=== PATIENT | male | born 1960 | race Caucasian/White ===

== ENCOUNTER 2020-12-06 07:48 | Outpatient (CLI) | payer OTHER, SELFPAY ==
[2020-12-06 08:15] VITALS: BP 109/70; PULSE 72; RESP 18; TEMP 37.1; O2SAT 97; BMI 36.0
[2020-12-06 09:05] VITALS: BP 109/70; PULSE 70; RESP 18; O2SAT 92
[2020-12-06 10:00] VITALS: BP 113/77; PULSE 72; RESP 18; TEMP 36.8; O2SAT 93
== END 2020-12-06 07:49 | disposition home or self-care (01) ==
PROVIDERS: PCP Family Medicine; Visit Provider Nurse Practitioner Family
DX: U07.1 COVID-19 (principal)
CPT/HCPCS: 96365

== ENCOUNTER 2020-12-09 14:17 | Inpatient (IN) | payer OTHER, SELFPAY ==
[2020-12-09] VITALS (46 sets, daily range): BP systolic 84–159; BP diastolic 58–99; PULSE 71–92; RESP 7–123; TEMP 36.7–37.2; O2SAT 85–96; BMI 36.0
--- NOTE | 2020-12-09 15:22 | W.ED.COVID ---
HPI - COVID General: Chief Complaint: COVID symptoms Stated Complaint: COVID + COMPLICATIONS Time Seen by Provider: 12/09/20 15:21 Triage information: Has fever, cough or shortness of breath. History of Present Illness: HPI Narrative: 60-year-old male presents emergency room with complaints difficulty breathing. He tested positive for Covid previously on 917. He had had symptoms for 2 to 3 days before that. He tested positive at [facility] we do not have it on the chart and our staff is ordering it. He has myalgias diarrhea with moderately productive cough. On arrival here he is hypoxic he initially was 87% on room air when I came and seen the patient he was still hovering in the upper 80s on 3 L by nasal cannula we are able to get him to the mid to low 90s on 6 L by nasal cannula. His has also been ill and seems to be recovering evidently she did receive monoclonal antibodies. Patient denies any sharp chest pain or hemoptysis MD complaint: known COVID positive Prior covid testing: yes, results known COVID 19 common symptoms: positive cough and dyspnea; negative fever(s), chills, fatigue, body aches, throat pain, nasal congestion, nausea, vomiting or diarrhea COVID 19 other sytmptoms: positive requiring oxygen; negative chest pain Onset (ago): day(s) (6) Severity: severe Pertinent comorbid conditions: hypertension Treatment prior to arrival: none COVID Results: No Data to Display Review of Systems Const: Denies: fever(s), chills, body aches, change in appetite, fatigue or malaise ENMT: Denies: throat pain, ear or mastoid pain, nasal discharge or nasal congestion Card: Denies: chest pain, edema, dyspnea on exertion or orthopnea Resp: Reports: dyspnea GI: Denies: abdominal pain, nausea, vomiting, hematemesis, coffee ground emesis, diarrhea, constipation, bloating, hematochezia or melena : Denies: flank pain, dysuria, urinary frequency or urinary urgency Skin/Breast: Denies: rash or pruritus [facility] PFSH: Medical History GERD (gastroesophageal reflux disease) Hypertension Surgical History History of appendectomy History of cholecystectomy Social History Smoking and tobacco status: never smoked Alcohol intake: never Physical Exam Const: COMMON NORMALS: no acute distress GENERAL APPEARANCE: cooperative and comfortable ORIENTATION/CONSCIOUSNESS: Yes awake, Yes oriented to person, Yes oriented to place and Yes oriented to time HENMT: COMMON NORMALS: normocephalic, atraumatic, hearing grossly normal bilaterally, external ears normal, EAC's normal, TM's normal bilaterally, Normal nasal mucous membranes and turbinates present, moist oral mucous membranes and oropharynx normal HEAD & SCALP: normocephalic and atraumatic NOSE: Normal nasal mucous membranes and turbinates present EXTERNAL EAR: Yes external ears normal EXTERNAL AUDITORY CANAL: EAC's normal TYMPANIC MEMBRANE: TM's normal bilaterally Neck/C-Spine: COMMON NORMALS: no JVD Resp: AUSCULTATION: crackles and wheezes Cardio: COMMON NORMALS: no JVD, regular rate, regular rhythm and No murmurs present (Cardio) RATE: regular rate RHYTHM: regular rhythm GI: COMMON NORMALS: Soft to palpation and No hepatosplenomegaly present AUSCULTATION: Yes normoactive bowel sounds PALPATION: Yes Soft to palpation, No Tenderness to palpation present (GI), No Guarding due to palpation present (GI) and Yes No hepatosplenomegaly present Extremity: COMMON NORMALS: normal to inspection, capillary refill normal, no clubbing, cyanosis or edema, no calf tenderness and no pedal edema Neuro: SENSORIUM/ORIENTATION: Yes oriented to person, Yes oriented to place and Yes oriented to time Skin: COMMON NORMALS: no rashes or lesions noted GENERAL SKIN EXAM: no rashes or lesions noted Course Vital Signs: Vital signs: Vital Signs Temperature 98.2 F 12/10/20 04:00 Pulse Rate 78 12/10/20 04:45 Respiratory Rate 22 H 12/10/20 04:45 Blood Pressure 144/88 12/10/20 04:00 Pulse Oximetry 94 12/10/20 04:45 MDM - COVID MDM Narrative: Medical decision making narrative: Patient is worsening Covid with radiographic signs of infiltrates additionally he is now requiring significant amounts of oxygen. Discussed the hospitalist will admit started on dexamethasone remdesivir. Continue supportive cares as well with oxygen he may yet require heated high flow oxygen this evening given his current maxed out status on nasal Cannula. Lab Data: Labs: Lab Results 12/09/20 12/09/20 12/09/20 16:00 16:00 16:00 WBC 9.3 10^3/uL 10^3/ uL (4.0-10.0) RBC 5.31 10^6/uL H 10 ^6/uL (4.1-5.3) Hgb 16.2 g/dL g/dL (11.7-16.6) Hct 47.4 % % (42.0-52.0) MCV 89.3 fl fl (80-94) MCH 30.5 pg pg (28.0-34.0) MCHC 34.2 g/dL g/dL (30.0-36.0) RDW 12.9 % % (12.1-15.1) Plt Count 296 10^3/cmm 10^3 /cmm (130-400) MPV 10.4 fL fL (7.4-10.4) Neut % (Auto) 81.0 % % Lymph % (Auto) 9.9 % % [place] % (Auto) 6.2 % % Eos % (Auto) 0.9 % % Baso % (Auto) 0.3 % % Neut # (Auto) 7.54 10^3/uL 10^3 /uL (1.8-7.7) Lymph # (Auto) 0.9 10^3/uL 10^3/ uL (0.8-4.8) [place] # (Auto) 0.6 10^3/uL 10^3/ uL (0.2-0.9) Eos # (Auto) 0.1 10^3/uL 10^3/ uL (0.0-0.8) Baso # (Auto) 0.0 10^3/uL 10^3/ uL (0.0-0.1) Nucleated RBC % (a uto) 0 % % Nucleated RBCs # 0.0 /100WBC /100W BC D-Dimer 2.21 ug/mIFEU H u g/mIFEU (0-0.59) Specimen Type Sample Site ABG pH ABG pCO2 ABG pO2 ABG HCO3 ABG Base Excess Pedro Test Hematocrit O2 Delivery Device O2 Liters/Min Senior Executive Compensation Analyst ID Sodium 139 mmol/L mmol/L (136-145) Potassium 4.0 mmol/L mmol/L (3.5-5.1) Chloride 99 mmol/L mmol/L (98-107) Carbon Dioxide 27 mmol/L mmol/L (22-29) Anion Gap 17.0 (5-19) BUN 14 mg/dL mg/dL (8-23) Creatinine 0.8 mg/dL mg/dL (0.7-1.2) GFR Calculation 98.6 mL/min mL/mi n (90-130) Glucose 113 mg/dL mg/dL (65-115) Calculated Osmolal ity 289 mOsm/kg mOsm/ kg (285-295) Lactic Acid Calcium 8.9 mg/dL mg/dL (8.5-10.5) Total Bilirubin 1.5 mg/dL H mg/dL (0.15-1.2) AST 73 U/L H U/L (0-40) ALT 51 U/L H U/L (0-41) Alkaline Phosphata se 105 IU/L IU/L (40-130) C-Reactive Protein 83.4 mg/L H mg/L (0.0-4.9) Total Protein 6.6 g/dL g/dL (6.6-8.7) Albumin 3.5 g/dL g/dL (3.5-5.2) Globulin 3.1 g/dL g/dL (1.3-4.6) Procalcitonin 12/09/20 12/09/20 12/09/20 16:00 16:00 17:41 WBC RBC Hgb Hct MCV MCH MCHC RDW Plt Count MPV Neut % (Auto) Lymph % (Auto) [place] % (Auto) Eos % (Auto) Baso % (Auto) Neut # (Auto) Lymph # (Auto) [place] # (Auto) Eos # (Auto) Baso # (Auto) Nucleated RBC % (a uto) Nucleated RBCs # D-Dimer Specimen Type Arterial Sample Site Radial, left ABG pH 7.48 H (7.35-7.45) ABG pCO2 36.3 mmHg mmHg (35-45) ABG pO2 63.6 mmHg L mmHg (80.0-100.0) ABG HCO3 26.8 mmol/L H mmo l/L (22-26) ABG Base Excess 3.3 mmol/L H mmol /L (-2.0-2.0) Pedro Test Pos Hematocrit 47.9 % % (42-52) O2 Delivery Device Nc O2 Liters/Min 6.0 % % Senior Executive Compensation Analyst ID Cak Sodium Potassium Chloride Carbon Dioxide Anion Gap BUN Creatinine GFR Calculation Glucose Calculated Osmolal ity Lactic Acid 1.7 mmol/L mmol/L (0.5-2.2) Calcium Total Bilirubin AST ALT Alkaline Phosphata se C-Reactive Protein Total Protein Albumin Globulin Procalcitonin 0.14 ng/mL ng/mL (0-0.5) COVID Results: No Data to Display Discharge Plan Discharge Patient Disposition: Admitted As Inpatient Admit Provider: Bang Burgess Coding Level of Care Code ED Group Leader for Jose Angela
--- NOTE | 2020-12-09 15:23 | XRR_ITS ---
PROCEDURE INFORMATION: Exam: XR Chest Exam date and time: 12/09/2020 3:23 PM Age: 60 years old Clinical indication: Dyspnea; Additional info: Dyspnea/cough/fever TECHNIQUE: Imaging protocol: XR of the chest. Views: 1 view. Other technique: Frontal portable upright view of the chest. COMPARISON: No relevant prior studies available. FINDINGS: Tubes, catheters and devices: EKG leads are present overlying the chest. Lungs: Bilateral peripheral pulmonary airspace opacities, relative apical sparing. The pulmonary vasculature is normal. Pleural spaces: No pleural effusion. No pneumothorax. Heart/Mediastinum: The heart is normal in size and contour. Bones/joints: No acute abnormality identified. XR/XR chest 1V portable [id number] IMPRESSION: Bilateral peripheral pulmonary airspace opacities, relative apical sparing. Pneumonitis, including viral pneumonitis, is difficult to exclude. Clinical correlation is recommended.
[2020-12-09 16:10] LABS: Basophils % 0.3 %; Eosinophils # 0.1 10^3/uL (0.0-0.8); Eosinophils % 0.9 %; Hematocrit 47.4 % (42.0-52.0); Hemoglobin 16.2 g/dL (11.7-16.6); Lymphocytes # 0.9 10^3/uL (0.8-4.8); Lymphocytes % 9.9 %; Mean Corpuscular HGB Conc 34.2 g/dL (30.0-36.0); Mean Corpuscular Hemoglobin 30.5 pg (28.0-34.0); Mean Corpuscular Volume 89.3 fl (80-94); Mean Platelet Volume 10.4 fL (7.4-10.4); Monocytes # 0.6 10^3/uL (0.2-0.9); Monocytes % 6.2 %; Neutrophils # 7.54 10^3/uL (1.8-7.7); Nucleated Red Blood Cells % 0 %; Platelet Count 296 10^3/cmm (130-400); Red Blood Count 5.31 10^6/uL (4.1-5.3); Red Cell Distribution Width 12.9 % (12.1-15.1); White Blood Count 9.3 10^3/uL (4.0-10.0)
[2020-12-09] MEDS: dexamethasone 4 mg/mL INJ 6 MG IVP (16:15)
--- NOTE | 2020-12-09 16:23 | CTR_ITS ---
PROCEDURE INFORMATION: Exam: CTA Chest With Contrast Exam date and time: 12/09/2020 4:23 PM Age: 60 years old Clinical indication: Cough and fever and shortness of breath; Additional info: Covid/hypoxia TECHNIQUE: Imaging protocol: Computed tomographic angiography of the chest with contrast. 3D rendering (Not supervised by radiologist): MIP and/or 3D reconstructed images were created by the technologist. Radiation optimization: All CT scans at this facility use at least one of these dose optimization techniques: automated exposure control; mA and/or kV adjustment per patient size (includes targeted exams where dose is matched to clinical indication); or iterative reconstruction. Contrast material: OMNI 350; Contrast volume: 81 ml; Contrast route: INTRAVENOUS (IV); COMPARISON: CR XR chest 1V portable [id number] 12/09/2020 3:33 PM RADIATION DOSE METRICS: Total DLP (mGy-cm): 615.51 FINDINGS: Pulmonary arteries: The main and proximal pulmonary artery branches are well visualized and there is no pulmonary embolus. The more distal branches are difficult to visualize especially in the lower lobes due to respiratory motion artifact. Aorta: There is 4.4 cm aneurysmal dilatation of the ascending thoracic aorta without dissection or mural hematoma. Lungs: Multifocal moderate ground-glass and airspace opacities are noted diffusely in both lungs compatible with the history COVID-19 pneumonia. Pleural spaces: Unremarkable. No pneumothorax. No pleural effusion. Heart: Unremarkable. No cardiomegaly. No pericardial effusion. Mediastinal space: A small hiatal hernia is present. Lymph nodes: Unremarkable. No enlarged lymph nodes. Liver: There is a diffuse decrease in hepatic parenchymal density, consistent with fatty infiltration. Gallbladder and bile ducts: There has been a cholecystectomy. There is no common bile duct dilation. Bones/joints: Unremarkable. No acute fracture. Soft tissues: Unremarkable. CT/CT angio chest PE protcl [id number] IMPRESSION: 1. No pulmonary embolus in the main or proximal pulmonary artery branches. Exam is limited distally due to motion artifact. 2. Multifocal moderate ground-glass and airspace opacities are noted diffusely in both lungs compatible with the history COVID-19 pneumonia. Radiation Dose CTDIVOL = (mGy): DLP = 615.51 (mGy-cm)
[2020-12-09 16:27] LABS: D Dimer 2.21 ug/mIFEU (0-0.59)
[2020-12-09 16:31] LABS: Alanine Aminotransferase 51 U/L (0-41); Albumin Level 3.5 g/dL (3.5-5.2); Alkaline Phosphatase 105 IU/L (40-130); Aspartate Amino Transferase 73 U/L (0-40); Blood Urea Nitrogen 14 mg/dL (8-23); C Reactive Protein 83.4 mg/L (0.0-4.9); Calcium 8.9 mg/dL (8.5-10.5); Carbon Dioxide 27 mmol/L (22-29); Chloride 99 mmol/L (98-107); Globulin 3.1 g/dL (1.3-4.6); Glomerular Filtration Rate 98.6 mL/min (90-130); Glucose 113 mg/dL (65-115); Osmolality Calculated 289 mOsm/kg (285-295); Sodium 139 mmol/L (136-145); Total Bilirubin 1.5 mg/dL (0.15-1.2); Total Protein 6.6 g/dL (6.6-8.7)
[2020-12-09 16:32] LABS: Lactic Sepsis W/Reflex 1.7 mmol/L (0.5-2.2)
[2020-12-09] MEDS: remdesivir 200 MG in sodium chloride 0.9% (100 ml) 60 ML 100 MG IV (17:18)
[2020-12-09 17:53] LABS: ABG PCO2 36.3 mmHg (35-45); ABG PH Result 7.48 (7.35-7.45); Arterial Blood Gas Hematocrit 47.9 % (42-52); Base Excess ABG 3.3 mmol/L (-2.0-2.0); Blood Gas Allen Test Pos; Blood Gas Operator Identificat CAK; Blood Gas Sample Site Radial, left; Blood Gas Sample Type Arterial; HCO3 ABG 26.8 mmol/L (22-26); Oxygen Device NC; PO2 ABG 63.6 mmHg (80.0-100.0)
--- NOTE | 2020-12-09 18:33 | PM.HP ---
Providers/Chief Complaint Primary Care Provider: Maru Celaya MD Chief Complaint: COVID + COMPLICATIONS History of Present Illness Jimmy Fatima Jr is a 60 year old male who presented to the hospital with chief complaint of worsening shortness of breath. Patient is stating the last week around Wednesday he started experiencing low-grade fever, diarrhea, weakness and shortness of breath, he got tested on Wednesday and received Bam infusion along his girlfriend. Him symptoms started getting worse that is why he decided to come to the hospital for further evaluation. In the hospital he was requiring oxygen 5 to 6 L initially and was transitioned to heated high flow. CTA ruled out PE. Consistent with Covid pneumonia abnormal transaminases High D-dimer noted secondary to severe infection Patient does seem a bit depressed and stated he does not want chest compressions or intubation however with further discussion he decided to talk with his brother and family , he will stay full code, I did try to encourage him to stay full code since he is young and not give up and stay motivated to fight with COVID-19 pneumonia Review of Systems Const: Reports: fever(s), chills, body aches and fatigue Eyes: Denies: change in vision ENMT: Denies: throat pain Card: Reports: dyspnea on exertion and orthopnea; Denies: chest pain Resp: Reports: dyspnea and non-productive cough GI: Denies: abdominal pain : Denies: flank pain Musc: Reports: extremity pain Skin/Breast: Denies: rash Neuro: Denies: headache(s) Psych: Reports: depression Endo: Denies: polyuria [place]/Lymph: Denies: easy bruising All/Imm: Denies: urticaria Medications/Allergies Home Medications Medication Instructions Recorded Confirmed Last Taken Type ascorbic acid (vitamin C) 500 mg 500 mg PO DAILY 12/05/20 12/09/20 12/09/20 History tablet [id number]-[id number] 250 1 tab PO Q6H PRN 12/05/20 12/09/20 12/09/20 History mg-250 mg-65 mg tablet cholecalciferol (vitamin D3) 25 25 mcg PO DAILY 12/05/20 12/09/20 12/09/20 History mcg (1,000 unit) capsule cyanocobalamin (vitamin B-12) 500 500 mcg PO DAILY 12/05/20 12/09/20 12/09/20 History mcg tablet ibuprofen 200 mg capsule 200 mg PO Q6H PRN 12/05/20 12/09/20 12/09/20 History omeprazole magnesium [Prilosec OTC] 20 mg PO DAILY 12/09/20 12/09/20 Unknown History Allergies Allergy/AdvReac Type Severity Reaction Status Date / Time No Known Allergies Allergy Verified 12/05/20 12:29 PFSH Acute PFSH: Medical History GERD (gastroesophageal reflux disease) Hypertension Surgical History History of appendectomy History of cholecystectomy Family History Denies family history of Chronic kidney disease (CKD) Social History (Updated 12/10/20 @ 15:00 by Bang Burgess MD) Smoking and tobacco status: never smoked Alcohol intake: never Substance/Drug Use: never Household members: significant other Vitals/I&O/Wt Last Vital Signs Temp 98.9 F 12/09/20 14:37 Pulse 81 12/09/20 16:55 Resp 14 12/09/20 16:55 BP 84/58 12/09/20 16:55 Pulse Ox 90 12/09/20 16:55 Weight last 48 hrs Weight 104.326 kg Physical Exam Narrative: EXAM NARRATIVE: Patient was seen and examined Requiring nasal cannula 5 to 6 L to keep saturation above 90% No conversational dyspnea EOMI, PERRLA Awake alert and attentive GCS 15 No abdominal pain abdomen distended bowel sounds present No audible stridor or wheezing No joint swelling Lower extremities without edema Depressed mood Data : 12/10/20 04:50 12/10/20 04:50 A&P Assessment and plan (1) COVID-19 determined by clinical diagnostic criteria: Status: Acute (2) Acute respiratory failure with hypoxia: Status: Acute Additional A&P Information Acute hypoxia due to covid 19 Heated high flow 40 L, 60% try to wean off oxygen, encourage proning, out of bed to chair, Trend CRP if his oxygen requirement is worsening we will start baricitinib from tomorrow CTA ruled out PE High D-dimer secondary to severe COVID-19 pneumonia Status post monoclonal antibody infusion outpatient His girlfriend also got sick at the same time Brother and life partner Sunitha updated Continue remdesivir and Decadron along multivitamins Full code dvt lovenox changed to 30 mg twice a day secondary to BMI cardiac diet Attestations Medical Necessity Statement*: Anticipating stay in the hospital across more than 2 midnights Time Spent in Patient Care: Greater than 35 minutes Coding Level of Care Code Acute Nursing Department Chairperson for g Fwd Diagnoses COVID-19 determined by clinical diagnostic criteria U07.1 Acute respiratory failure with hypoxia J96.01
[2020-12-09] MEDS: iohexol 350 mg/mL 100 mL Btl IV (19:16)
[2020-12-09 19:21] LABS: Procalcitonin 0.14 ng/mL (0-0.5)
--- NOTE | 2020-12-09 20:06 | PC.NURSE ---
called med/surg to give report. Nancy states she will have to track the nurse down and have her call back for report.
--- NOTE | 2020-12-09 20:18 | PC.NURSE ---
report called to Radha PEREZ
[2020-12-09] MEDS: enoxaparin 40 mg/0.4 mL Syringe SUBCUT (21:08)
[2020-12-10] VITALS (10 sets, daily range): BP systolic 116–144; BP diastolic 67–88; PULSE 73–86; RESP 17–28; TEMP 36.5–36.9; O2SAT 87–95
[2020-12-10 04:16] LABS: ABG PCO2 36.8 mmHg (35-45); ABG PH Result 7.47 (7.35-7.45); Arterial Blood Gas Hematocrit 49.9 % (42-52); Base Excess ABG 2.9 mmol/L (-2.0-2.0); Blood Gas Allen Test Pos; Blood Gas Sample Site Radial, left; Blood Gas Sample Type Arterial; HCO3 ABG 26.5 mmol/L (22-26); Oxygen Device OXY MASK; PO2 ABG 56.6 mmHg (80.0-100.0)
[2020-12-10 05:33] LABS: Basophils % 0.2 %; Hematocrit 44.8 % (42.0-52.0); Hemoglobin 15.7 g/dL (11.7-16.6); Lymphocytes # 0.9 10^3/uL (0.8-4.8); Lymphocytes % 10.6 %; Mean Corpuscular Hemoglobin 30.7 pg (28.0-34.0); Mean Corpuscular Volume 87.5 fl (80-94); Mean Platelet Volume 10.5 fL (7.4-10.4); Monocytes # 0.4 10^3/uL (0.2-0.9); Monocytes % 5.2 %; Neutrophils # 6.73 10^3/uL (1.8-7.7); Neutrophils % 82.1 %; Nucleated Red Blood Cells % 0 %; Platelet Count 349 10^3/cmm (130-400); Red Blood Count 5.12 10^6/uL (4.1-5.3); Red Cell Distribution Width 12.9 % (12.1-15.1); White Blood Count 8.2 10^3/uL (4.0-10.0)
[2020-12-10 05:53] LABS: Alanine Aminotransferase 51 U/L (0-41); Albumin Level 3.3 g/dL (3.5-5.2); Alkaline Phosphatase 96 IU/L (40-130); Aspartate Amino Transferase 67 U/L (0-40); Blood Urea Nitrogen 14 mg/dL (8-23); Calcium 8.9 mg/dL (8.5-10.5); Carbon Dioxide 25 mmol/L (22-29); Chloride 98 mmol/L (98-107); Creatinine Clr Calc Pharmacy 129.1911; Globulin 3.8 g/dL (1.3-4.6); Glucose 123 mg/dL (65-115); Osmolality Calculated 286 mOsm/kg (285-295); Sodium 137 mmol/L (136-145); Total Bilirubin 1.1 mg/dL (0.15-1.2); Total Protein 7.1 g/dL (6.6-8.7)
[2020-12-10 05:56] LABS: Anion Gap 17.8 (5-19); Potassium 3.8 mmol/L (3.5-5.1)
[2020-12-10 06:10] LABS: Slide Review Slide Review Perform
[2020-12-10] MEDS: ascorbic acid 500 mg Tablet PO (08:29)
[2020-12-10] MEDS: cyanocobalamin 1,000 mcg Tablet 500 MCG PO (08:29)
[2020-12-10] MEDS: cholecalciferol (vitamin D3) 1,000 unit Tablet 1000 UNIT PO (08:29)
[2020-12-10] MEDS: pantoprazole DR 40 mg Tablet PO (08:30)
--- NOTE | 2020-12-10 10:00 | PC.NURSE ---
Adelina Cisneros patients life partner requests that she be called by the doctor today. Dr. Burgess notified at this time and he states that he will call her.
--- NOTE | 2020-12-10 15:02 | PM.PN ---
Subjective Subjective: Interval history: Patient is on heated high flow Patient endorsed feeling lethargic and fatigued stating feels like I am dying No active chest pain or shortness of breath seems comfortable in his bed He did talk with his brother over the phone He wants to discuss goals of care with his family Vitals/I&O/Wt Last Vital Signs Temp 98.2 F 12/10/20 11:40 Pulse 86 12/10/20 14:06 Resp 22 H 12/10/20 14:06 BP 120/71 12/10/20 11:40 Pulse Ox 91 12/10/20 14:06 12/10/20 12/10/20 12/10/20 06:59 14:59 22:59 Output Total 225 / 525 Balance -225 / -425 Weight last 48 hrs Weight 104.326 kg Weight 104.326 kg Physical Exam Narrative: EXAM NARRATIVE: Patient laying comfortably Currently on heated high flow 60%, 40 L No audible stridor or wheezing No crepitation noted Bilateral breath sounds noted Abdomen soft distended with obesity EOMI, PERRLA Sinus rhythm no murmur appreciated EOMI, PERRLA Data : 12/10/20 04:50 12/10/20 04:50 A&P Assessment and plan (1) COVID-19 determined by clinical diagnostic criteria: Status: Acute (2) Acute respiratory failure with hypoxia: Status: Acute Additional A&P Information Acute hypoxia related to COVID-19 Currently on heated high flow 40 L, 60% Wean off oxygen Encourage proning Continue remdesivir and Decadron Start baricitinib tomorrow if oxygen requirement worsening CRP above 75 BMI 36 Continue multivitamins, procalcitonin unremarkable, hold off on antibiotics for now, Patient has not been able to eat much, Kidney function is normal Full code Regular diet Requested MRSA PCR nares DVT prophylaxis Lovenox 30 mg every 12h Life partner and brother updated Attestations Medical Necessity Statement*: Continue medical management Time Spent in Patient Care: Greater than 35 minutes Coding Level of Care Code Acute Lease Operator for Chg Fwd Diagnoses COVID-19 determined by clinical diagnostic criteria U07.1 Acute respiratory failure with hypoxia J96.01
[2020-12-10] MEDS: dexamethasone 10 mg/mL INJ 6 MG IVP (16:00)
[2020-12-10] MEDS: enoxaparin 30 mg/0.3 mL Syringe SUBCUT (16:00)
[2020-12-10] MEDS: acetaminophen 325 mg Tablet 650 MG PO (16:02)
[2020-12-10 17:01] LABS: Glucose Point of Care 129 mg/dL (70-110)
[2020-12-10] MEDS: remdesivir 100 MG in sodium chloride 0.9% (100 ml) 100 ML IV (17:38)
--- NOTE | 2020-12-10 19:18 | PC.NURSE ---
Report to Radha PEREZ at this time.
[2020-12-10] MEDS: budesonide 0.5 mg/2 mL Neb 0.25 MG INHALATION (19:45)
[2020-12-10 21:04] LABS: Glucose Point of Care 179 mg/dL (70-110)
[2020-12-11] VITALS (12 sets, daily range): BP systolic 107–135; BP diastolic 68–89; PULSE 60–80; RESP 16–24; TEMP 36.4–37; O2SAT 88–97
[2020-12-11 05:41] LABS: Basophils % 0.2 %; Hematocrit 44.8 % (42.0-52.0); Hemoglobin 15.3 g/dL (11.7-16.6); Lymphocytes # 1.1 10^3/uL (0.8-4.8); Lymphocytes % 10.9 %; Mean Corpuscular HGB Conc 34.2 g/dL (30.0-36.0); Mean Corpuscular Hemoglobin 30.2 pg (28.0-34.0); Mean Corpuscular Volume 88.4 fl (80-94); Mean Platelet Volume 11.2 fL (7.4-10.4); Monocytes # 0.4 10^3/uL (0.2-0.9); Monocytes % 3.5 %; Neutrophils # 8.51 10^3/uL (1.8-7.7); Neutrophils % 83.7 %; Nucleated Red Blood Cells % 0 %; Platelet Count 413 10^3/cmm (130-400); Red Blood Count 5.07 10^6/uL (4.1-5.3); Red Cell Distribution Width 13.1 % (12.1-15.1); White Blood Count 10.2 10^3/uL (4.0-10.0)
[2020-12-11 06:03] LABS: Anion Gap 15.3 (5-19); Blood Urea Nitrogen 23 mg/dL (8-23); C Reactive Protein 65.2 mg/L (0.0-4.9); Calcium 8.7 mg/dL (8.5-10.5); Carbon Dioxide 25 mmol/L (22-29); Chloride 104 mmol/L (98-107); Glomerular Filtration Rate 98.6 mL/min (90-130); Glucose 126 mg/dL (65-115); Osmolality Calculated 297 mOsm/kg (285-295); Potassium 3.3 mmol/L (3.5-5.1); Sodium 141 mmol/L (136-145)
[2020-12-11] MEDS: enoxaparin 30 mg/0.3 mL Syringe SUBCUT ×2 (06:06→16:41)
[2020-12-11 06:31] LABS: Glucose Point of Care 119 mg/dL (70-110)
[2020-12-11] MEDS: ipratropium-albuterol 3 mL Neb INHALATION ×2 (07:37→21:22)
[2020-12-11] MEDS: budesonide 0.5 mg/2 mL Neb 0.25 MG INHALATION ×2 (07:37→21:22)
[2020-12-11] MEDS: zinc gluconate 50 mg Tablet PO (07:57)
[2020-12-11] MEDS: cholecalciferol (vitamin D3) 1,000 unit Tablet 1000 UNIT PO (07:57)
[2020-12-11] MEDS: methylphenidate 10 mg Tablet 5 MG PO (07:57)
[2020-12-11] MEDS: cyanocobalamin 1,000 mcg Tablet 500 MCG PO (07:57)
[2020-12-11] MEDS: pantoprazole DR 40 mg Tablet PO (07:58)
[2020-12-11] MEDS: ascorbic acid 500 mg Tablet PO (07:59)
[2020-12-11 11:08] LABS: Glucose Point of Care 115 mg/dL (70-110)
--- NOTE | 2020-12-11 13:07 | PM.PN ---
Subjective Subjective: Interval history: Patient was seen and examined this morning endorsing weakness and lethargy however stating that he has felt improvement in his energy is on Ritalin No fever Currently he is on 50% 50 L heated high flow Started baricitinib today Patient is stating that he still waiting for his brother to call them back, I told him I will treat him as full code for now I did update his significant other as well, he gave me permission to update her on daily basis Vitals/I&O/Wt Last Vital Signs Temp 98.4 F 12/11/20 11:11 Pulse 77 12/11/20 11:11 Resp 17 12/11/20 11:11 BP 135/87 12/11/20 11:11 Pulse Ox 90 12/11/20 11:11 12/10/20 12/11/20 12/11/20 22:59 06:59 14:59 Intake Total 340 / 340 600 / 940 480 / 480 Output Total 300 / 300 Balance 340 / 340 300 / 640 480 / 480 Weight last 48 hrs Weight 104.326 kg Weight 104.326 kg Physical Exam Narrative: EXAM NARRATIVE: Patient laying in bed Saturating well on 50% 50 L Clinically does not look fluid overloaded or dehydrated Soft abdomen no signs of peritonitis distended visceral obesity EOMI, PERRLA No stridor or wheezing or crepitation noted Bilateral breath sounds No respiratory distress No lower extremity edema Data : 12/11/20 04:56 12/11/20 04:56 A&P Assessment and plan (1) Acute respiratory failure with hypoxia: Status: Acute (2) COVID-19 determined by clinical diagnostic criteria: Status: Acute (3) Hypertension: Status: Acute Qualifiers: Hypertension type: essential hypertension Qualified Code(s): I10 - Essential (primary) hypertension (4) GERD (gastroesophageal reflux disease): Status: Acute Qualifiers: Esophagitis presence: without esophagitis Qualified Code(s): K21.9 - Gastro-esophageal reflux disease without esophagitis (5) Hypokalemia: Status: Acute Additional A&P Information Hypoxia related to COVID-19 Heated high flow Hypokalemia CRP 84 and then 65 Full code GERD Hypertension Start baricitinib 14-day regimen Continue remdesivir and Decadron No active cough No active chest pain Monitor for any signs of superimposed infections, worsening of kidney function or fluid overload Procalcitonin unremarkable Patient was encouraged to use flutter valve and prone himself Wean down oxygen on daily basis Out of bed to chair Ritalin for lethargy and fatigue Significant other updated Attestations Medical Necessity Statement*: Continue medical management Time Spent in Patient Care: 16 - 35 minutes Coding Level of Care Code Acute Predatory Animal Exterminator for Chg Fwd Diagnoses Acute respiratory failure with hypoxia J96.01 COVID-19 determined by clinical diagnostic criteria U07.1 Hypertension I10 Hypertension type: essential hypertension GERD (gastroesophageal reflux disease) K21.9 Esophagitis presence: without esophagitis Hypokalemia E87.6
[2020-12-11 16:27] LABS: Glucose Point of Care 151 mg/dL (70-110)
[2020-12-11] MEDS: remdesivir 100 MG in sodium chloride 0.9% (100 ml) 100 ML IV (16:40)
[2020-12-11] MEDS: potassium chloride ER 20 mEq Tablet 40 MEQ PO (16:41)
[2020-12-11] MEDS: dexamethasone 10 mg/mL INJ 6 MG IVP (16:42)
[2020-12-11 21:22] LABS: Glucose Point of Care 157 mg/dL (70-110)
[2020-12-12] VITALS (13 sets, daily range): BP systolic 125–148; BP diastolic 83–96; PULSE 62–103; RESP 16–24; TEMP 36.5–36.7; O2SAT 86–97
[2020-12-12 03:44] LABS: Anion Gap 15.8 (5-19); Blood Urea Nitrogen 23 mg/dL (8-23); Calcium 8.4 mg/dL (8.5-10.5); Carbon Dioxide 25 mmol/L (22-29); Chloride 104 mmol/L (98-107); Glomerular Filtration Rate 98.6 mL/min (90-130); Glucose 132 mg/dL (65-115); Osmolality Calculated 298 mOsm/kg (285-295); Potassium 3.8 mmol/L (3.5-5.1); Sodium 141 mmol/L (136-145)
[2020-12-12 04:24] LABS: D Dimer 1.51 ug/mIFEU (0-0.59)
[2020-12-12] MEDS: enoxaparin 30 mg/0.3 mL Syringe SUBCUT ×2 (05:26→17:37)
[2020-12-12 06:37] LABS: Glucose Point of Care 113 mg/dL (70-110)
[2020-12-12] MEDS: cholecalciferol (vitamin D3) 1,000 unit Tablet 1000 UNIT PO (08:08)
[2020-12-12] MEDS: zinc gluconate 50 mg Tablet PO (08:08)
[2020-12-12] MEDS: ascorbic acid 500 mg Tablet PO (08:08)
[2020-12-12] MEDS: pantoprazole DR 40 mg Tablet PO (08:08)
[2020-12-12] MEDS: methylphenidate 10 mg Tablet 5 MG PO (08:08)
[2020-12-12] MEDS: cyanocobalamin 1,000 mcg Tablet 500 MCG PO (08:08)
[2020-12-12] MEDS: budesonide 0.5 mg/2 mL Neb 0.25 MG INHALATION ×2 (08:17→20:52)
[2020-12-12] MEDS: ipratropium-albuterol 3 mL Neb INHALATION (08:18)
[2020-12-12 12:05] LABS: Glucose Point of Care 99 mg/dL (70-110)
--- NOTE | 2020-12-12 16:56 | PM.PN ---
Subjective Subjective: Interval history: This morning I did decrease his FiO2 to 40% he was saturating 89 to 91% at rest Did update RT Decrease flow to 45 L today No overnight events encourage patient for proning getting out of bed to chair and walk in the room Endorsing loss of appetite and low mood Vitals/I&O/Wt Last Vital Signs Temp 97.8 F 12/12/20 15:24 Pulse 103 H 12/12/20 15:24 Resp 24 H 12/12/20 15:24 BP 125/84 12/12/20 15:24 Pulse Ox 86 L 12/12/20 15:24 12/12/20 12/12/20 12/12/20 06:59 14:59 22:59 Intake Total 200 / 1260 240 / 240 Output Total 600 / 600 Balance -400 / 660 240 / 240 Physical Exam Narrative: EXAM NARRATIVE: Patient resting comfortably saturating 90 to 91% on 40% FiO2 heated high flow Bilateral breath sounds no active crackles or crepitation Abdomen soft distended with obesity Lower extremity no edema EOMI, PERRLA Does not look dehydrated Low mood, fatigue and lethargy appreciated No neurological deficits No joint swelling Data : 12/11/20 04:56 12/12/20 02:38 Micro: Microbiology 12/11/20 04:30 MRSA Culture - Final Nose A&P Assessment and plan (1) Hypokalemia: Status: Acute (2) Acute respiratory failure with hypoxia: Status: Acute (3) COVID-19 determined by clinical diagnostic criteria: Status: Acute (4) Hypertension: Status: Acute Qualifiers: Hypertension type: essential hypertension Qualified Code(s): I10 - Essential (primary) hypertension (5) GERD (gastroesophageal reflux disease): Status: Acute Qualifiers: Esophagitis presence: without esophagitis Qualified Code(s): K21.9 - Gastro-esophageal reflux disease without esophagitis Additional A&P Information Active issues Hypoxia COVID-19 Heated high flow higher oxygen requirement Fatigue and lethargy Hypokalemia Plan Wean oxygen down Encourage proning and flutter valve FiO2 40% flow 45 L Ritalin for fatigue and lethargy Baricitinib Multivitamins In case of worsening of hypoxia would recommend x-ray to rule out air leak Normotensive Full code We will discharge patient once his oxygen requirement is between 4 to 6 L nasal cannula Attestations Medical Necessity Statement*: Continue medical management Time Spent in Patient Care: 16 - 35 minutes Coding Level of Care Code Acute Dehydration Plant Operator for Chg Fwd Diagnoses Hypokalemia E87.6 Acute respiratory failure with hypoxia J96.01 COVID-19 determined by clinical diagnostic criteria U07.1 Hypertension I10 Hypertension type: essential hypertension GERD (gastroesophageal reflux disease) K21.9 Esophagitis presence: without esophagitis
[2020-12-12 17:12] LABS: Glucose Point of Care 136 mg/dL (70-110)
[2020-12-12] MEDS: dexamethasone 10 mg/mL INJ 6 MG IVP (17:37)
[2020-12-12] MEDS: remdesivir 100 MG in sodium chloride 0.9% (100 ml) 100 ML IV (17:37)
[2020-12-12 20:49] LABS: Glucose Point of Care 147 mg/dL (70-110)
[2020-12-13] VITALS (14 sets, daily range): BP systolic 115–137; BP diastolic 71–86; PULSE 53–76; RESP 16–20; TEMP 36.6–37.2; O2SAT 91–96
[2020-12-13] MEDS: enoxaparin 30 mg/0.3 mL Syringe SUBCUT ×2 (04:26→17:02)
[2020-12-13 05:59] LABS: Anion Gap 15.1 (5-19); Blood Urea Nitrogen 25 mg/dL (8-23); C Reactive Protein 13.1 mg/L (0.0-4.9); Calcium 8.5 mg/dL (8.5-10.5); Carbon Dioxide 26 mmol/L (22-29); Chloride 101 mmol/L (98-107); Glomerular Filtration Rate 86.1 mL/min (90-130); Glucose 122 mg/dL (65-115); Osmolality Calculated 292 mOsm/kg (285-295); Potassium 4.1 mmol/L (3.5-5.1); Sodium 138 mmol/L (136-145)
[2020-12-13 06:42] LABS: Glucose Point of Care 119 mg/dL (70-110)
[2020-12-13] MEDS: zinc gluconate 50 mg Tablet PO (08:09)
[2020-12-13] MEDS: cholecalciferol (vitamin D3) 1,000 unit Tablet 1000 UNIT PO (08:09)
[2020-12-13] MEDS: pantoprazole DR 40 mg Tablet PO (08:09)
[2020-12-13] MEDS: cyanocobalamin 1,000 mcg Tablet 500 MCG PO (08:09)
[2020-12-13] MEDS: ascorbic acid 500 mg Tablet PO (08:09)
[2020-12-13] MEDS: budesonide 0.5 mg/2 mL Neb 0.25 MG INHALATION ×2 (08:20→21:07)
[2020-12-13] MEDS: ipratropium-albuterol 3 mL Neb INHALATION (09:25)
[2020-12-13 12:13] LABS: Glucose Point of Care 145 mg/dL (70-110)
--- NOTE | 2020-12-13 12:28 | P.PN_ITS ---
Subjective Subjective: Interval history: Patient is endorsing feeling slightly better He has not been able to get out of bed because of his short tubing with heated high flow however today his oxygen will be weaned down to high flow nasal cannula 10 L Patient was encouraged to get out of bed and walk in his room and monitors his O2 saturation Life partner updated Vitals/I&O/Wt Last Vital Signs Temp 98.8 F 12/13/20 08:00 Pulse 65 12/13/20 10:53 Resp 20 H 12/13/20 10:53 BP 137/80 12/13/20 08:00 Pulse Ox 92 12/13/20 10:53 12/12/20 12/13/20 12/13/20 22:59 06:59 14:59 Intake Total 100 / 340 120 / 460 Output Total 300 / 300 1200 / 1500 Balance -200 / 40 -1080 / -1040 Physical Exam Narrative: EXAM NARRATIVE: Patient was resting comfortably in his bed saturating 90 to 92% on 38% 35 L which was weaned down to 10 L high flow nasal cannula later on S1, S2 sinus rhythm He does experience dry cough on deep breathing now however no audible stridor or wheezing crackles or crepitation on lung auscultation Abdomen soft Lower symmetry no edema EOMI, PERRLA Data : 12/11/20 04:56 12/13/20 04:53 A&P Assessment and plan (1) Hypokalemia: Status: Acute (2) Acute respiratory failure with hypoxia: Status: Acute (3) COVID-19 determined by clinical diagnostic criteria: Status: Acute (4) Hypertension: Status: Acute Qualifiers: Hypertension type: essential hypertension Qualified Code(s): I10 - Essential (primary) hypertension (5) GERD (gastroesophageal reflux disease): Status: Acute Qualifiers: Esophagitis presence: without esophagitis Qualified Code(s): K21.9 - Gastro-esophageal reflux disease without esophagitis Additional A&P Information Active issues COVID-19 Hypoxia Hypokalemia Hypertension GERD Dry cough Plan Wean down his oxygen Encourage out of bed to chair Proning Flutter valve Ritalin was put on hold secondary to tachycardia Continue 6 mg IV steroids Multivitamins and zinc Dextromethorphan for as needed use for dry cough Currently on sliding scale for hyperglycemia Continue remdesivir baricitinib Life partner updated Full code Requested RT to wean oxygen down today and give him longer nasal cannula so he could freely ambulate in his room with portable oxygen tank if possible Attestations Medical Necessity Statement*: Continue medical management plan to discharge once O2 requirement is between 4 to 6 L on ambulation Time Spent in Patient Care: 16 - 35 minutes Coding Level of Care Code Acute Rattle Leak And Squeak Repairer for Chg Fwd Diagnoses Hypokalemia E87.6 Acute respiratory failure with hypoxia J96.01 COVID-19 determined by clinical diagnostic criteria U07.1 Hypertension I10 Hypertension type: essential hypertension GERD (gastroesophageal reflux disease) K21.9 Esophagitis presence: without esophagitis
[2020-12-13] MEDS: dexamethasone 10 mg/mL INJ 6 MG IVP (17:02)
[2020-12-13] MEDS: remdesivir 100 MG in sodium chloride 0.9% (100 ml) 100 ML IV (17:02)
[2020-12-13 17:41] LABS: Glucose Point of Care 151 mg/dL (70-110)
[2020-12-13 21:10] LABS: Glucose Point of Care 154 mg/dL (70-110)
[2020-12-14] VITALS (11 sets, daily range): BP systolic 117–154; BP diastolic 76–99; PULSE 54–80; RESP 15–20; TEMP 36.4–37.1; O2SAT 91–97
[2020-12-14] MEDS: enoxaparin 30 mg/0.3 mL Syringe SUBCUT ×2 (03:46→16:01)
[2020-12-14 06:26] LABS: Glucose Point of Care 122 mg/dL (70-110)
[2020-12-14 06:41] LABS: D Dimer 1.59 ug/mIFEU (0-0.59)
[2020-12-14 06:48] LABS: Anion Gap 12.1 (5-19); Blood Urea Nitrogen 20 mg/dL (8-23); C Reactive Protein 7.8 mg/L (0.0-4.9); Calcium 8.2 mg/dL (8.5-10.5); Carbon Dioxide 27 mmol/L (22-29); Chloride 103 mmol/L (98-107); Glomerular Filtration Rate 98.6 mL/min (90-130); Glucose 124 mg/dL (65-115); Osmolality Calculated 290 mOsm/kg (285-295); Potassium 4.1 mmol/L (3.5-5.1); Sodium 138 mmol/L (136-145)
[2020-12-14 06:53] LABS: Procalcitonin 0.06 ng/mL (0-0.5)
[2020-12-14] MEDS: zinc gluconate 50 mg Tablet PO (08:32)
[2020-12-14] MEDS: cyanocobalamin 1,000 mcg Tablet 500 MCG PO (08:32)
[2020-12-14] MEDS: pantoprazole DR 40 mg Tablet PO (08:32)
[2020-12-14] MEDS: ascorbic acid 500 mg Tablet PO (08:33)
[2020-12-14] MEDS: cholecalciferol (vitamin D3) 1,000 unit Tablet 1000 UNIT PO (08:33)
[2020-12-14] MEDS: budesonide 0.5 mg/2 mL Neb 0.25 MG INHALATION ×2 (08:45→20:25)
[2020-12-14] MEDS: ipratropium-albuterol 3 mL Neb INHALATION (08:45)
[2020-12-14 11:20] LABS: Glucose Point of Care 139 mg/dL (70-110)
--- NOTE | 2020-12-14 11:59 | P.PN_ITS ---
Subjective Subjective: Interval history: Patient was seen and examined this morning I turned his oxygen down to 8 L today he was saturating 92% He has been getting out of bed to chair and trying to walk in his room Endorsing dry cough Endorsing improvement in his energy, happy with his progress He was talking with the phone with his friend Vitals/I&O/Wt Last Vital Signs Temp 98.7 F 12/14/20 11:52 Pulse 80 12/14/20 11:52 Resp 18 12/14/20 11:52 BP 154/99 12/14/20 11:52 Pulse Ox 94 12/14/20 11:52 12/13/20 12/14/20 12/14/20 22:59 06:59 14:59 Intake Total 700 / 700 120 / 820 480 / 480 Output Total 625 / 625 300 / 925 Balance 75 / 75 -180 / -105 480 / 480 Physical Exam Narrative: EXAM NARRATIVE: Saturating well on 8 L nasal cannula Obese male Well-hydrated EOMI, PERRLA No audible stridor or wheezing Rhonchi noted left lung base with dry coughing No crepitation Heart rate seventies saturating 92% Soft abdomen Legs no edema Data : 12/11/20 04:56 12/14/20 05:41 A&P Assessment and plan (1) Acute respiratory failure with hypoxia: Status: Acute (2) COVID-19 determined by clinical diagnostic criteria: Status: Acute (3) Hypertension: Status: Acute Qualifiers: Hypertension type: essential hypertension Qualified Code(s): I10 - Essential (primary) hypertension Additional A&P Information Persistent hypoxia related to COVID-19 Dry cough Sinus tachycardia Lethargy and fatigue Oxygen requirement has been weaned down to 8 L nasal cannula today, he is able to walk in his room, not able to do proning because of abdominal distention Endorsing improvement in energy, Ritalin has been discontinued, sinus tachycardia has improved as well Has stayed afebrile Procalcitonin unremarkable CRP 7.8 We will add codeine with dextromethorphan and gabapentin for dry cough along st eroids currently on baricitinib and remdesivir Attestations Medical Necessity Statement*: Continue medical management Time Spent in Patient Care: less than 15 minutes Coding Level of Care Code Acute Assembler Finger Buffs for Jose Angela Diagnoses Acute respiratory failure with hypoxia J96.01 COVID-19 determined by clinical diagnostic criteria U07.1 Hypertension I10 Hypertension type: essential hypertension
[2020-12-14] MEDS: amlodipine 5 mg Tablet PO (12:36)
[2020-12-14] MEDS: lisinopril 20 mg Tablet PO (12:36)
[2020-12-14] MEDS: gabapentin 100 mg Capsule PO ×2 (15:58→20:53)
[2020-12-14] MEDS: dexamethasone 4 mg/mL INJ IVP (15:59)
[2020-12-14 17:27] LABS: Glucose Point of Care 154 mg/dL (70-110)
--- NOTE | 2020-12-14 18:04 | PC.NURSE ---
Shift Note Frequent safety and comfort rounds continue. Orders and/or nursing care completed as indicated. Patient monitored for response to intervention and treatment(s). Education provided includes using and encouraging the incentive spirometer and flutter valve with patient giving verbal understanding. Patient has sat up to bedside chair during meals without complaint. Patient is currently resting comfortably in bed. Will continue to monitor.
[2020-12-14 20:46] LABS: Glucose Point of Care 234 mg/dL (70-110)
[2020-12-15] VITALS (10 sets, daily range): BP systolic 105–117; BP diastolic 21–82; PULSE 59–83; RESP 16–21; TEMP 36.8–37.2; O2SAT 91–95
[2020-12-15] MEDS: enoxaparin 30 mg/0.3 mL Syringe SUBCUT ×2 (03:38→15:29)
[2020-12-15 03:47] LABS: ABG PCO2 40.9 mmHg (35-45); ABG PH Result 7.44 (7.35-7.45); Arterial Blood Gas Hematocrit 46.5 % (42-52); Base Excess ABG 3.3 mmol/L (-2.0-2.0); Blood Gas Allen Test Pos; Blood Gas Sample Site Radial, right; Blood Gas Sample Type Arterial; HCO3 ABG 27.8 mmol/L (22-26); Oxygen Device NC; PO2 ABG 63.6 mmHg (80.0-100.0)
[2020-12-15 06:09] LABS: Basophils # 0.1 10^3/uL (0.0-0.1); Basophils % 0.5 %; Eosinophils % 0.1 %; Hematocrit 45.1 % (42.0-52.0); Hemoglobin 14.8 g/dL (11.7-16.6); Lymphocytes # 1.5 10^3/uL (0.8-4.8); Lymphocytes % 9.5 %; Mean Corpuscular HGB Conc 32.8 g/dL (30.0-36.0); Mean Corpuscular Hemoglobin 30.5 pg (28.0-34.0); Mean Corpuscular Volume 92.8 fl (80-94); Mean Platelet Volume 10.8 fL (7.4-10.4); Monocytes # 1.1 10^3/uL (0.2-0.9); Monocytes % 6.7 %; Nucleated Red Blood Cells % 0 %; Platelet Count 499 10^3/cmm (130-400); Red Blood Count 4.86 10^6/uL (4.1-5.3); Red Cell Distribution Width 13.1 % (12.1-15.1); White Blood Count 16.2 10^3/uL (4.0-10.0)
[2020-12-15 06:32] LABS: Anion Gap 14.3 (5-19); Blood Urea Nitrogen 20 mg/dL (8-23); Calcium 8.2 mg/dL (8.5-10.5); Carbon Dioxide 27 mmol/L (22-29); Chloride 104 mmol/L (98-107); Glomerular Filtration Rate 98.6 mL/min (90-130); Glucose 121 mg/dL (65-115); Osmolality Calculated 296 mOsm/kg (285-295); Potassium 4.3 mmol/L (3.5-5.1); Sodium 141 mmol/L (136-145)
[2020-12-15 06:33] LABS: Glucose Point of Care 119 mg/dL (70-110)
[2020-12-15 07:32] LABS: Neutrophils % 83.2 %
[2020-12-15 07:33] LABS: Slide Review Slide Review Perform
[2020-12-15] MEDS: gabapentin 100 mg Capsule PO ×3 (08:43→21:58)
[2020-12-15] MEDS: pantoprazole DR 40 mg Tablet PO (08:43)
[2020-12-15] MEDS: cholecalciferol (vitamin D3) 1,000 unit Tablet 1000 UNIT PO (08:43)
[2020-12-15] MEDS: zinc gluconate 50 mg Tablet PO (08:43)
[2020-12-15] MEDS: ascorbic acid 500 mg Tablet PO (08:44)
[2020-12-15] MEDS: cyanocobalamin 1,000 mcg Tablet 500 MCG PO (08:45)
[2020-12-15] MEDS: budesonide 0.5 mg/2 mL Neb 0.25 MG INHALATION ×2 (09:09→20:02)
[2020-12-15] MEDS: ipratropium-albuterol 3 mL Neb INHALATION (09:09)
[2020-12-15] MEDS: amlodipine 5 mg Tablet PO (09:41)
[2020-12-15] MEDS: lisinopril 20 mg Tablet PO (09:41)
[2020-12-15 11:48] LABS: Glucose Point of Care 199 mg/dL (70-110)
--- NOTE | 2020-12-15 13:11 | PM.PN ---
Subjective Subjective: Interval history: Patient is endorsing feeling better he saturating well on 6 L nasal cannula, if he is able to maintain his O2 saturation above 90% on 6 L he can be discharged on Wednesday versus Wednesday, patient happy with his progress, he is endorsing improvement in his cough as well He was saturating 89 to 91% on 6 L when I entered the room he was eating his breakfast Vitals/I&O/Wt Last Vital Signs Temp 98.3 F 12/15/20 11:48 Pulse 76 12/15/20 11:48 Resp 17 12/15/20 11:48 BP 115/80 12/15/20 11:48 Pulse Ox 92 12/15/20 11:48 12/14/20 12/15/20 12/15/20 22:59 06:59 14:59 Intake Total 360 / 360 Output Total 600 / 600 1100 / 1700 Balance -600 / 80 -1100 / -1020 360 / 360 Physical Exam Narrative: EXAM NARRATIVE: Saturating well on 6 L nasal cannula S1, EOMI, PERRLA no neurological deficits Appears well-hydrated No joint swelling or cellulitis Appears well-hydrated Abdomen soft nontender Bilateral breath sounds with mild crackles at the left lung base Data : 12/15/20 05:31 12/15/20 05:31 A&P Assessment and plan (1) Hypokalemia: Status: Acute (2) Acute respiratory failure with hypoxia: Status: Acute (3) COVID-19 determined by clinical diagnostic criteria: Status: Acute (4) Hypertension: Status: Acute Qualifiers: Hypertension type: essential hypertension Qualified Code(s): I10 - Essential (primary) hypertension (5) GERD (gastroesophageal reflux disease): Status: Acute Qualifiers: Esophagitis presence: without esophagitis Qualified Code(s): K21.9 - Gastro-esophageal reflux disease without esophagitis Additional A&P Information Acute hypoxia related to COVID-19 oxygen has been weaned down from heated high flow to nasal cannula 6 L able to maintain O2 saturation 88 to 90%, would like to check O2 saturation on ambulation if he is able to maintain his O2 saturation at target level then can be discharged in next 48 hours For productive cough requested sputum sample Afebrile Leukocytosis seems secondary to use of steroids however watch for any signs of superimposed infection will request CRP procalcitonin tomorrow I would like to give him 1 dose of Lasix for crackles left lung base Repeat x-ray tomorrow Currently on baricitinib,, status post remdesivir, de-escalate steroids to 2 mg daily Hypertension: Currently normotensive Hypokalemia: Repleted GERD: Protonix Full code Family updated Attestations Medical Necessity Statement*: Anticipating discharge in next if show signs of improvement discharge in next 48 hours Time Spent in Patient Care: 16 - 35 minutes Coding Level of Care Code Acute Caddie Supervisor for g Fwd Diagnoses Hypokalemia E87.6 Acute respiratory failure with hypoxia J96.01 COVID-19 determined by clinical diagnostic criteria U07.1 Hypertension I10 Hypertension type: essential hypertension GERD (gastroesophageal reflux disease) K21.9 Esophagitis presence: without esophagitis
--- NOTE | 2020-12-15 13:17 | XRR_ITS ---
PROCEDURE INFORMATION: Exam: XR Chest Exam date and time: 12/15/2020 1:17 PM Age: 60 years old Clinical indication: Shortness of breath; Additional info: Crackles left lung TECHNIQUE: Imaging protocol: XR of the chest. Views: 1 view. COMPARISON: CR XR chest 1V portable [id number] 12/09/2020 3:33 PM FINDINGS: Lungs: Bilateral pulmonary opacities/partial consolidation, decreased since 12/09/20. Pleural spaces: Unremarkable. No pleural effusion. No pneumothorax. Heart/Mediastinum: Unremarkable. No cardiomegaly. Bones/joints: No acute findings. XR/XR chest 1V portable [id number] IMPRESSION: Bilateral pneumonia, decreased since 12/09/2020.
[2020-12-15] MEDS: FUROsemide 20 mg Tablet PO (13:34)
[2020-12-15] MEDS: dexamethasone 4 mg/mL INJ 2 MG IVP (15:28)
[2020-12-15 17:03] LABS: Glucose Point of Care 134 mg/dL (70-110)
--- NOTE | 2020-12-15 17:22 | PC.NURSE ---
Shift Note Frequent safety and comfort rounds continue. Orders and/or nursing care completed as indicated. Patient monitored for response to intervention and treatment(s). Education provided includes importance of monitoring blood sugars and taking insulin as needed. Patient verbalized understanding. Patient has sat up in recliner multiple times today with no complaint. Patient is currently sitting up in recliner eating his dinner. Will continue to monitor.
[2020-12-15 20:26] LABS: Glucose Point of Care 166 mg/dL (70-110)
[2020-12-16] VITALS (8 sets, daily range): BP systolic 100–111; BP diastolic 66–74; PULSE 60–77; RESP 16–18; TEMP 36.8–37.2; O2SAT 87–95
[2020-12-16] MEDS: enoxaparin 30 mg/0.3 mL Syringe SUBCUT (04:47)
[2020-12-16 06:07] LABS: Basophils # 0.1 10^3/uL (0.0-0.1); Basophils % 0.3 %; Eosinophils # 0.1 10^3/uL (0.0-0.8); Eosinophils % 0.4 %; Hematocrit 46.4 % (42.0-52.0); Hemoglobin 15.3 g/dL (11.7-16.6); Lymphocytes # 1.6 10^3/uL (0.8-4.8); Lymphocytes % 7.4 %; Mean Corpuscular Hemoglobin 30.5 pg (28.0-34.0); Mean Corpuscular Volume 92.4 fl (80-94); Mean Platelet Volume 10.9 fL (7.4-10.4); Monocytes # 1.5 10^3/uL (0.2-0.9); Monocytes % 6.8 %; Neutrophils # 17.33 10^3/uL (1.8-7.7); Neutrophils % 81.6 %; Nucleated Red Blood Cells % 0 %; Platelet Count 442 10^3/cmm (130-400); Red Blood Count 5.02 10^6/uL (4.1-5.3); Red Cell Distribution Width 13.1 % (12.1-15.1); White Blood Count 21.2 10^3/uL (4.0-10.0)
[2020-12-16 06:37] LABS: Glucose Point of Care 105 mg/dL (70-110)
[2020-12-16 06:40] LABS: Procalcitonin 0.08 ng/mL (0-0.5)
[2020-12-16 06:50] LABS: D Dimer 1.27 ug/mIFEU (0-0.59)
[2020-12-16 06:53] LABS: Anion Gap 13.7 (5-19); Blood Urea Nitrogen 18 mg/dL (8-23); C Reactive Protein 7.1 mg/L (0.0-4.9); Calcium 8.3 mg/dL (8.5-10.5); Carbon Dioxide 27 mmol/L (22-29); Chloride 99 mmol/L (98-107); Glomerular Filtration Rate 98.6 mL/min (90-130); Glucose 117 mg/dL (65-115); Osmolality Calculated 285 mOsm/kg (285-295); Potassium 3.7 mmol/L (3.5-5.1); Sodium 136 mmol/L (136-145)
[2020-12-16] MEDS: budesonide 0.5 mg/2 mL Neb 0.25 MG INHALATION (07:45)
[2020-12-16] MEDS: ipratropium-albuterol 3 mL Neb INHALATION (07:45)
[2020-12-16] MEDS: zinc gluconate 50 mg Tablet PO (09:06)
[2020-12-16] MEDS: ascorbic acid 500 mg Tablet PO (09:06)
[2020-12-16] MEDS: amlodipine 5 mg Tablet PO (09:06)
[2020-12-16] MEDS: pantoprazole DR 40 mg Tablet PO (09:06)
[2020-12-16] MEDS: cholecalciferol (vitamin D3) 1,000 unit Tablet 1000 UNIT PO (09:06)
[2020-12-16] MEDS: cyanocobalamin 1,000 mcg Tablet 500 MCG PO (09:07)
[2020-12-16] MEDS: gabapentin 100 mg Capsule PO (09:11)
[2020-12-16 12:03] LABS: Glucose Point of Care 289 mg/dL (70-110)
[2020-12-16 16:56] LABS: Glucose Point of Care 115 mg/dL (70-110)
--- NOTE | 2020-12-16 17:55 | P.DS_ITS ---
Discharge Providers Date of Admission: 12/09/20 17:44 Date of Discharge: December 16, 2020 Attending Provider at Admission: Bang Burgess MD Attending Provider at Discharge: Candice Bardales MD Primary Care Provider: Maru Celaya MD Diagnoses at Discharge Discharge Diagnosis (1) Hypokalemia: Status: Resolved (2) Acute respiratory failure with hypoxia: Status: Acute (3) COVID-19 determined by clinical diagnostic criteria: Status: Acute (4) Hypertension: Status: Resolved Qualifiers: Hypertension type: essential hypertension Qualified Code(s): I10 - Esse ntial (primary) hypertension (5) GERD (gastroesophageal reflux disease): Status: Acute Qualifiers: Esophagitis presence: without esophagitis Qualified Code(s): K21.9 - Gastro-esophageal reflux disease without esophagitis Reason for Visit Reason for Visit: COVID + COMPLICATIONS Hospital Course Hospital Course HPI as per Dr. Burgess Jimmy Fatima Jr is a 60 year old male who presented to the hospital with chief complaint of worsening shortness of breath. Patient is stating the last week around Wednesday he started experiencing low-grade fever, diarrhea, weakness and shortness of breath, he got tested on Wednesday and received Bam infusion along his girlfriend. Him symptoms started getting worse that is why he decided to come to the hospital for further evaluation. In the hospital he was requiring oxygen 5 to 6 L initially and was transitioned to heated high flow. CTA ruled out PE. Consistent with Covid pneumonia abnormal transaminases High D-dimer noted secondary to severe infection Patient does seem a bit depressed and stated he does not want chest compressions or intubation however with further discussion he decided to talk with his brother and family , he will stay full code, I did try to encourage him to stay full code since he is young and not give up and stay motivated to fight with COVID-19 pneumonia Course Patient was admitted with COVID PNA. He completed remdesivir and received baricitinib and dexamethasone. Patient was afebrile and did not require antibiotics. He also received Ritalin for few days. Dextrometorphan and gabapentin for dry cough was given during hospital stay. He was discharged on home oxygen, medrol dose pack, albuterol inhaler and robitussin cough syrup. Patient to follow with PCP in 1 week and recheck CBC in 1 week. He had WBC elevation most likely secondary to steroid use. Physical Exam Narrative: EXAM NARRATIVE: EXAM NARRATIVE: Saturating well on 3 nasal cannula Obese male Well-hydrated EOMI, PERRLA No audible stridor or wheezing Mild ronchi noted left lung base with dry coughing No crepitation Normal s1, s2, no gross murmers noted, saturating 92% Soft abdomen, non distended Lower extremities: no edema or cyanosis Discharge Data Data Completed and Pending: Completed Studies During Hospitalization Category Date Time Status CT angio chest PE protcl [id number] Stat Cat Scan 12/09/20 16:23 Completed XR chest 1V daron ble [id number] Routine Exams 12/15/20 13:17 Completed XR chest 1V daron ble [id number] Stat Exams 12/09/20 15:23 Completed Pending at discharge Category Date Time Status Sputum Culture an d Gram Stain Stat Lab 12/09/20 15:31 Uncollected Labs from last 24 hours 12/16/20 12/16/20 12/16/20 16:53 11:50 06:30 WBC RBC Hgb Hct MCV MCH MCHC RDW Plt Count MPV Neut % (Auto) Lymph % (Auto) [place] % (Auto) Eos % (Auto) Baso % (Auto) Neut # (Auto) Lymph # (Auto) [place] # (Auto) Eos # (Auto) Baso # (Auto) Nucleated RBC % (a uto) Nucleated RBCs # D-Dimer Sodium Potassium Chloride Carbon Dioxide Anion Gap BUN Creatinine GFR Calculation Glucose POC Glucose 115 H 289 H 105 Calculated Osmolal ity Calcium C-Reactive Protein Procalcitonin 12/16/20 12/16/20 12/16/20 05:20 05:20 05:20 WBC 21.2 H RBC 5.02 Hgb 15.3 Hct 46.4 MCV 92.4 MCH 30.5 MCHC 33.0 RDW 13.1 Plt Count 442 H MPV 10.9 H Neut % (Auto) 81.6 Lymph % (Auto) 7.4 [place] % (Auto) 6.8 Eos % (Auto) 0.4 Baso % (Auto) 0.3 Neut # (Auto) 17.33 H Lymph # (Auto) 1.6 [place] # (Auto) 1.5 H Eos # (Auto) 0.1 Baso # (Auto) 0.1 Nucleated RBC % (a uto) 0 Nucleated RBCs # 0.0 D-Dimer 1.27 H Sodium 136 Potassium 3.7 Chloride 99 Carbon Dioxide 27 Anion Gap 13.7 BUN 18 Creatinine 0.8 GFR Calculation 98.6 Glucose 117 H POC Glucose Calculated Osmolal ity 285 Calcium 8.3 L C-Reactive Protein 7.1 H Procalcitonin 0.08 12/15/20 20:20 WBC RBC Hgb Hct MCV MCH MCHC RDW Plt Count MPV Neut % (Auto) Lymph % (Auto) [place] % (Auto) Eos % (Auto) Baso % (Auto) Neut # (Auto) Lymph # (Auto) [place] # (Auto) Eos # (Auto) Baso # (Auto) Nucleated RBC % (a uto) Nucleated RBCs # D-Dimer Sodium Potassium Chloride Carbon Dioxide Anion Gap BUN Creatinine GFR Calculation Glucose POC Glucose 166 H Calculated Osmolal ity Calcium C-Reactive Protein Procalcitonin Vitals: Last Vital Signs Temp 99.0 F 12/16/20 15:35 Pulse 77 12/16/20 15:35 Resp 17 12/16/20 15:35 BP 100/66 12/16/20 15:35 Pulse Ox 93 12/16/20 15:35 Discharge Plan Discharge Patient Disposition: Home Condition: Stable Prescriptions: New Ventolin HFA 90 mcg/actuation HFA aerosol inhaler 2 inh inhalation Q4H PRN (Reason: shortness of breath or wheezing) Qty: 6.7 RF: 0 Medrol (Didier) 4 mg tablets,dose pack See Rx Instructions .ROUTE .COMPLEX Qty: 21 RF: 0 G Tussin AC 10-100 mg/5 mL liquid 5 ml PO Q4H PRN (Reason: cough) 15 Days Qty: 60 RF: 0 Continued cyanocobalamin (vitamin B-12) 500 mcg tablet 500 mcg PO DAILY RF: 0 ascorbic acid (vitamin C) 500 mg tablet 500 mg PO DAILY RF: 0 cholecalciferol (vitamin D3) 25 mcg (1,000 unit) capsule 25 mcg PO DAILY RF: 0 ibuprofen 200 mg capsule 200 mg PO Q6H PRN (Reason: Pain) RF: 0 Excedrin Extra Strength 250-250-65 mg tablet 1 tab PO Q6H PRN (Reason: Headache) RF: 0 Prilosec OTC 20 mg Tablet,Delayed Release (Dr/Ec) 20 mg PO DAILY RF: 0 Discharge Orders: Discharge Order (Routine); Ordered 12/16/20 Ordered By: Candice Bardales Other Ambulatory Orders: Complete Blood Count w/Auto (Routine) Timeframe: 1 Week Location: Determined by Patient Ordered By: Candice Bardales DME: Oxygen (Order) Location: None Selected Ordered By: Candice Bardales Referrals: [facility] [Outside] Discharge Diet: Regular Discharge Activity: Increase activity as tolerated and Oxygen as instructed Patient Instructions: Albuterol (By breathing), Dextromethorphan (By mouth), Methylprednisolone (By mouth), Community-acquired Pneumonia (DC), Opioid Safety Activity Restrictions/Additional Instructions: Please call your PCP in the morning to schedule an appointment to be seen in 1 week. Recheck CBC lab in 3 days. Discharge Attestations Time Spent in Discharge Care*: less than 30 min Status at Discharge: Cognitive status at discharge: cognitively intact , Quality Metrics Clinical Quality Measures During this hospital stay, did patient experience: None Coding Level of Care Code Acute Chg FW DC note Diagnoses Hypokalemia E87.6 Acute respiratory failure with hypoxia J96.01 COVID-19 determined by clinical diagnostic criteria U07.1 Hypertension I10 Hypertension type: essential hypertension GERD (gastroesophageal reflux disease) K21.9 Esophagitis presence: without esophagitis
--- NOTE | 2020-12-18 10:03 | PC.SOCIAL ---
discharge follow up call made, spoke with Adelina, patients sig other. Attempted to reach patient and wasn't successful. she report patient is doing good, patient is using o2 at 3L, can tolerate ambulating to the BR on RA and sats are 91%. Patient picked up new medications from the pharmacy is taking the steriod but hasn't had to use the inhaler or cough medicine much. sig other wishes to make follow up appointment with pcp for patient.
== END 2020-12-16 18:15 | disposition home or self-care (01) | DRG 177 ==
LOC: ER 15:21 → MEDSURG 20:04
PROVIDERS: Admitting Provider Internal Medicine; Emergency Provider Family Medicine; PCP Family Medicine; Visit Provider Internal Medicine
DX: U07.1 COVID-19 (principal); J12.82 Pneumonia due to coronavirus disease 2019; J96.01 Acute respiratory failure with hypoxia; K21.9 Gastro-esophageal reflux disease without esophagitis; I10 Essential (primary) hypertension; E87.6 Hypokalemia; D72.829 Elevated white blood cell count, unspecified; R79.1 Abnormal coagulation profile
CPT/HCPCS: 36415; 36416; 36600; 71045; 71275; 80048; 80053; 82803; 82962; 83605; 84145; 85025; 85378; 86140; 87641; 94640; 94762; 96365; 96372; 96375; 99285; J1100; J1650; J1815; J7626; Q9967